=== PATIENT | male | born 1995 | race Caucasian/White ===

== ENCOUNTER 2020-10-22 23:39 | Emergency (ER) | payer OTHER ==
[~2020-10-22] VITALS: Ht 190.5 cm; Wt 154.2 kg
[2020-10-23] MEDS ORDERED: ONDANSETRON HCL INJ 2MG/ML 2ML 2 MG/ML VIAL IV STA (00:24)
[2020-10-23] MEDS ORDERED: KETOROLAC TROMETHAMINE 30 MG/ML VIAL IV STA (00:24)
[2020-10-23] MEDS: SODIUM CHLORIDE 0.9% 1000ML 1,000 ML IV SCH ×2 (00:25→01:35)
[2020-10-23] MEDS ORDERED: ONDANSETRON HCL INJ 2MG/ML 2ML 2 MG/ML VIAL ONE (00:29)
[2020-10-23] MEDS ORDERED: KETOROLAC TROMETHAMINE 30 MG/ML VIAL ONE (00:29)
[2020-10-23] MEDS ORDERED: SODIUM CHLORIDE 0.9% 1000ML 1,000 ML ONE (00:29)
[2020-10-23] MEDS ORDERED: MORPHINE SULFATE INJ 4 MG/ML INJ 1ML IV STA ×2 (01:03→01:30)
[2020-10-23] MEDS ORDERED: MORPHINE SULFATE INJ 4 MG/ML INJ 1ML ONE ×2 (01:13→01:39)
[2020-10-23] MEDS ORDERED: PROMETHAZINE HCL (IM) 25 MG/ML VIAL IM ONE (01:15)
[2020-10-23] MEDS ORDERED: SODIUM CHLORIDE 0.9% 250ML 250 ML ONE (01:15)
[2020-10-23] MEDS ORDERED: PROMETHAZINE 25MG/ NS 50ML (IV) IV ONE (01:15)
[2020-10-23] MEDS ORDERED: SODIUM CHLORIDE 0.9% 1000ML 1,000 ML IV SCH (01:30)
[2020-10-23] MEDS ORDERED: TAMSULOSIN HCL 0.4 MG CAP ONE (01:41)
[2020-10-23] MEDS ORDERED: TAMSULOSIN HCL 0.4 MG CAP PO ONE (01:45)
[2020-10-23] MEDS ORDERED: KETOROLAC TROME10 MG PO (02:50)
[2020-10-23] MEDS ORDERED: PROMETHAZINE HC25 M1 PO (03:10)
[2020-10-23] MEDS ORDERED: TYLENOL # 31 EA PO (03:10)
[2020-10-23] MEDS ORDERED: FLOMAX0.4 MG PO (03:11)
[2020-10-23] MEDS ORDERED: CEFDINIR300 MG PO (03:12)
[2020-10-23] MEDS ORDERED: ONDANSETRON ODT4 MG PO (20:21)
[2020-10-23] MEDS ORDERED: ULTRAM 50MG50 MG PO (20:21)
== END 2020-10-23 03:23 | disposition home or self-care (01) ==
LOC: FSED 10-23 00:25
DX: R11.2 Nausea with vomiting, unspecified (principal); M54.5 Low back pain; N13.2 Hydronephrosis with renal and ureteral calculous obstruction; K76.0 Fatty (change of) liver, not elsewhere classified
CPT/HCPCS: 74176; 80053; 81003; 85025; 99284; J1885; J2270; J2405; J2550; J7030; J7050

== ENCOUNTER 2020-10-23 19:51 | Emergency (ER) | payer OTHER ==
[~2020-10-23] VITALS: Ht 190.5 cm; Wt 154.2 kg
[~2020-10-23 19:51] MED LIST: CEFDINIR300 MG PO; FLOMAX0.4 MG PO; KETOROLAC TROME10 MG PO; PROMETHAZINE HC25 M1 PO; TYLENOL # 31 EA PO
[2020-10-23] MEDS ORDERED: HYDROCODONE/APAP 5MG-325MG TAB PO ONE (20:15)
[2020-10-23] MEDS ORDERED: ONDANSETRON HCL 4 MG ORAL DISINTEGRATING TAB PO ONE (20:15)
[2020-10-23] MEDS ORDERED: KETOROLAC TROMETHAMINE 60 MG/2 ML VIAL IM ONE (20:15)
[2020-10-23] MEDS ORDERED: ONDANSETRON ODT4 MG PO (20:21)
[2020-10-23] MEDS ORDERED: ULTRAM 50MG50 MG PO (20:21)
[2020-10-23] MEDS ORDERED: HYDROCODONE/APAP 5MG-325MG TAB ONE ×2 (20:32→20:43)
[2020-10-23] MEDS ORDERED: ONDANSETRON HCL 4 MG ORAL DISINTEGRATING TAB ONE (20:32)
[2020-10-23] MEDS ORDERED: KETOROLAC TROMETHAMINE 60 MG/2 ML VIAL ONE (20:32)
== END 2020-10-23 21:15 | disposition home or self-care (01) ==
LOC: FSED 19:54
DX: M54.5 Low back pain (principal); R11.0 Nausea; N13.2 Hydronephrosis with renal and ureteral calculous obstruction
CPT/HCPCS: 99282; J1885; Q0162